=== PATIENT | male | born 1995 | race Caucasian/White ===

== ENCOUNTER 2022-11-06 17:43 | Emergency (ER) | payer BC, SELFPAY ==
--- NOTE | 2022-11-06 18:00 | ED.NAVMDI ---
HPI - Nausea/Vomiting/Diarrhea General Chief complaint: Nausea/Vomiting/Diarrhea Stated complaint: nausea,diarrhea Time Seen by Provider: 11/06/22 18:04 Source: patient and RN notes reviewed Mode of arrival: ambulatory Limitations: no limitations History of Present Illness HPI Narrative: 27 y/o male presented for c/o nausea, vomiting and diarrhea. Onset this morning 0930. Denies abdominal pain, hematochezia, melena, fever or chills. Denies sick contacts. States he may have eaten something that triggered the symptoms. He has been out of town, drinking alcohol and eating differently for about 3 days. Last emesis about 1hour MOVIE EXTRA. Not taking anything for symptoms. Related Data Allergies Allergy/AdvReac Type Severity Reaction Status Date / Time No Known Allergies Allergy Verified 11/06/22 18:06 Review of Systems Review of Systems: CONSTITUTIONAL: Denies body aches, fever, chills ENT: Denies rhinorrhea, congestion CARDIOVASCULAR: Denies chest pain, palpitations, or edema. RESPIRATORY: Denies cough or dyspnea. GASTROINTESTINAL: per HPI GENITOURINARY: Denies dysuria, hematuria, or CVA tenderness. SKIN: Denies rash, itching, or wounds. MUSCULOSKELETAL: Denies back pain, joint pain, or myalgia. NEUROLOGIC: Denies headache, numbness, tingling, or weakness. All systems reviewed & are unremarkable except as noted in HPI and below PMFSH Past Medical History Medical History (Updated 11/06/22 @ 18:18 by Ondina Da Silva APRN) No pertinent past medical history Comments At time of signature, I have reviewed and agree with nursing past medical, surgical, social and family history unless otherwise noted. Please see nursing chart for further information. There is no relevant family history pertinent to the presenting complaint Exam Narrative: GENERAL: Mildly ill-appearing, nontoxic. EYES: EOMI. Conjunctivae normal. ENT: Mucous membranes pink and moist. CHEST: No respiratory distress. Clear to auscultation. HEART: Regular rate and rhythm. No murmur appreciated. Normal peripheral pulses. ABDOMEN: abd soft, nondistended, normal active bowel sounds. Nontender abdomen; No guarding, rebound tenderness, asymmetry EXTREMITIES: Normal range of motion. No edema. SKIN: Warm, dry, no rash. Capillary refill normal. Normal skin turgor. NEURO: No focal deficits. Alert and oriented x3. PSYCH: Normal affect. Course Course Emergency Course: Patient is aware of diagnosis, understands and agrees to treatment plan. Anticipatory guidance given. Patient agrees to follow-up as directed and is aware of reasons to seek care at the emergency department. Portions of this record may have been created with voice recognition software Level of Care: Express Care Visit MDM - Nausea/Vomiting/Diarrhea MDM Narrative Medical decision making narrative: Patient presented with N/V/D today. VSS, no fever, denies abdominal pain or hematemesis/hematochezia. Advised supportive measures and signs/symptoms to go to the ER. Pt is appropriate for outpt treatment and f/u. Differential Diagnosis Differential diagnosis: Likely food poisoning, gastroenteritis, drug-induced nausea and vomiting and dehydration Discharge Plan Discharge Clinical Impression: Nausea, vomiting and diarrhea Patient Disposition: Home, Self-Care Condition: Stable Instructions: Gastroenteritis (ED) Additional Instructions: Stay hydrated. Take small sips of fluid containing electrolytes frequently. Clear liquids (broth, jello, tea, sprite, pedialyte) [place] foods (bananas, rice, applesauce, toast, crackers) Avoid fatty, greasy, fried or spicy foods until symptoms resolve. You should go to the hospital if you experience persistent nausea and vomiting that does not resolve and does not allow you to tolerate any food or fluids, fevers, increasing abdominal pain, persistent diarrhea, dizziness, fainting, or for any other concerns. Prescriptions: New ondansetron 4 mg tabl
[2022-11-06 18:03] VITALS: BP 138/81; PULSE 75; RESP 18; TEMP 36.2; O2SAT 99
== END 2022-11-06 18:15 | disposition home or self-care (01) ==
PROVIDERS: Emergency Provider Nurse Practitioner Family
DX: R11.2 Nausea with vomiting, unspecified (principal); R19.7 Diarrhea, unspecified
CPT/HCPCS: 99203; G0463

== ENCOUNTER 2022-11-06 18:39 | Emergency (ER) | payer BC, SELFPAY ==
[2022-11-06 19:19] VITALS: BP 133/81; PULSE 78; RESP 16; TEMP 37.1; O2SAT 98
--- NOTE | 2022-11-06 19:54 | PC.NURSE ---
Pt provider UA specimen from ED lobby at this time.
[2022-11-06 23:25] LABS: Appearance Urine Clear (Clear); Basophils Absolute Auto 0.1 K/mm3 (0.0-0.1); Basophils Percent Auto 0.3 % (0.2-1.2); Bilirubin Urine Negative (Negative); Blood Urine Trace-intact (Negative); Color Urine Yellow (Yellow); Eosinophils Percent Auto 0.1 % (0-4.4); Glucose Urine UA Negative (Negative); Hematocrit 41.4 % (42.0-52.0); Hemoglobin 14.7 g/dL (14.0-18.0); Immature Granulocyte Absolute 0.06 K/mm3 (0.00-0.031); Immature Granulocyte Percent A 0.4 % (0-0.5); Ketones Urine Negative (Negative); Leukocyte Esterase Ur Negative LEU/UL (Negative); Lymphocytes Absolute Auto 2.74 K/mm3 (0.9-3.2); Lymphocytes Percent Auto 17.9 % (18.3-44.2); Mean Corpuscular HGB Conc 35.5 g/dl (32-36); Mean Corpuscular Hemoglobin 30.3 pg (26-34); Mean Corpuscular Volume 85.4 fl (80-100); Mean Platelet Volume 10.4 fl (7.4-10.4); Monocytes Absolute Auto 1.3 K/mm3 (0.1-0.6); Monocytes Percent Auto 8.7 % (2.6-8.5); Neutrophils Absolute Auto 11.1 K/mm3 (1.3-6.7); Neutrophils Percent Auto 72.6 % (45.5-73.1); Nitrate Urine Negative (Negative); Platelet Count Result 279 k/mm3 (150-375); Protein Urine 2+ mg/dL (Negative); Red Blood Count 4.85 M/mm3 (4.6-6.20); Red Cell Distribution Width 11.8 % (11.5-14.5); Specific Grav Ur 1.015 (1.001-1.035); Urobilinogen Urine 0.2 mg/dL (<2.0); White Blood Count 15.3 K/mm3 (4.5-10.0); pH Urine 8.5 (5.0-9.0)
[2022-11-06] MEDS: ONDANSETRON INJ 4 MG/2 ML VIAL IV PUSH (23:27)
[2022-11-06] MEDS: SODIUM CHLORIDE 0.9% IV 1,000 ML 999 ML IV CONT (23:27)
[2022-11-06 23:29] LABS: Add Urine Microscopic? YES; Bacteria Urine Trace /hpf; Mucus Urine Heavy /lpf; Squamous Epithelial Cell Urine Rare /hpf (Few); WBC Urine 0-3 /hpf
[2022-11-06 23:34] LABS: Alanine Aminotransferase 49 U/L (6-50); Albumin Level 5.2 g/dL (3.5-5.1); Alkaline Phosphatase 65 U/L (38-126); Anion Gap 10 mmol/L (8-16); Aspartate Amino Transferase 44 U/L (17-59); Bilirubin,Total 0.9 mg/dL (0.2-1.3); Blood Urea Nitrogen 17 mg/dL (9-20); Calcium 9.4 mg/dL (8.4-10.2); Carbon Dioxide 24 mmol/L (22-30); Chloride 102 mmol/L (98-107); Estimated CRCL calculation 130 ml/min; Estimated Glomerular Filt Rate > 60; Glucose 106 mg/dL (65-110); Lipase 31 U/L (23-300); Potassium 4.1 mmol/L (3.4-5.0); Sodium 136 mmol/L (137-145)
--- NOTE | 2022-11-07 01:32 | ED.GENADULT ---
HPI - General Adult General Chief complaint: Nausea/Vomiting/Diarrhea Stated complaint: nausea, vomiting since 0900, decreased PO intake Time Seen by Provider: 11/06/22 23:10 History of Present Illness HPI narrative: Patient is a 19-year-old gentleman who presents the emergency department with chief complaint of nausea vomiting and diarrhea. Patient reports that he just got back from a trip to [place] and reports that he started having multiple episodes of nausea vomiting and diarrhea today. Patient reports he was seen in urgent care and given a prescription for an antiemetic. Patient reports that he was unable to keep anything down and was feeling achy all over. Related Data Allergies Allergy/AdvReac Type Severity Reaction Status Date / Time No Known Allergies Allergy Verified 11/06/22 19:22 Review of Systems Review of Systems: A 10 system review of systems was completed on the patient and is negative except for what is stated in the HPI. Nursing and ancillary documentation was reviewed. PMFSH Past Medical History Medical History No pertinent past medical history Exam Narrative: GENERAL: Well-appearing, well-nourished, and in no acute distress. HEAD: Normocephalic, atraumatic. EYES: PERRLA and EOMI. ENT: Nares clear, no rhinorrhea or epistaxis. Mucous membranes moist. NECK: Supple. CHEST: Clear to auscultation. No respiratory distress. HEART: Regular rate and rhythm. No murmur heard. Normal peripheral pulses. ABDOMEN: Soft, minimal tenderness to palpation, no guarding no rebound, nondistended, normal active bowel sounds. EXTREMITIES: Normal range of motion. No edema. SKIN: Warm, dry, no rash. NEURO: No focal deficits. Alert and oriented x3. PSYCH: Normal mood and affect. Course Vital Signs Vital signs: Vital Signs Temperature 37.1 C 11/06/22 19:19 Pulse Rate 78 11/06/22 19:19 Respiratory Rate 16 11/06/22 19:19 Blood Pressure 133/81 11/06/22 19:19 Pulse Oximetry 98 11/06/22 19:19 Oxygen Delivery Room Air 11/06/22 19:19 Temperature 37.1 C 11/06/22 19:19 Pulse Rate 78 11/06/22 19:19 Respiratory Rate 16 11/06/22 19:19 Blood Pressure 133/81 11/06/22 19:19 Pulse Oximetry 98 11/06/22 19:19 Oxygen Delivery Room Air 11/06/22 19:19 Medical Decision Making MDM Narrative Medical decision making narrative: Differential diagnosis includes bacterial gastroenteritis, viral gastroenteritis, intra-abdominal infection, appendicitis, diverticulitis. Exam is not consistent with acute appendicitis and the patient has no localizing symptoms or peritoneal irritation. After receiving IV fluids antiemetics patient is feeling much better at this time is able to tolerate p.o. intake. The patient has a prescription for Zofran at home Laboratory studies were reviewed the patient had a white count of 15.3 that once again is not showing signs of acute appendicitis laboratory urine showed 11-20 red blood cells in the urine and some protein in the urine. Liver enzymes are within normal limits. The patient is feeling much better at this time and would like outpatient therapy the patient was instructed for precautions for acute appendicitis and when to return to the emergency department. Vital Signs Vital Signs: Vital Signs Temperature 37.1 C 11/06/22 19:19 Pulse Rate 78 11/06/22 19:19 Respiratory Rate 16 11/06/22 19:19 Blood Pressure 133/81 11/06/22 19:19 Pulse Oximetry 98 11/06/22 19:19 Oxygen Delivery Room Air 11/06/22 19:19 Temperature 37.1 C 11/06/22 19:19 Pulse Rate 78 11/06/22 19:19 Respiratory Rate 16 11/06/22 19:19 Blood Pressure 133/81 11/06/22 19:19 Pulse Oximetry 98 11/06/22 19:19 Oxygen Delivery Room Air 11/06/22 19:19 Lab Data 11/06/22 23:16 11/06/22 23:17 Labs: Lab Results 11/06/22 11/06/22 11/06/22 Range/Units 23:16 2
[2022-11-07 01:51] VITALS: BP 129/84; PULSE 82; RESP 18; O2SAT 100
== END 2022-11-07 01:40 | disposition home or self-care (01) ==
PROVIDERS: Emergency Provider Emergency Medicine
DX: K52.9 Noninfective gastroenteritis and colitis, unspecified (principal)
CPT/HCPCS: 36415; 80053; 81001; 83690; 85025; 96361; 96374; 99284; J2405; J7030